=== PATIENT | female | born 1970 | race Caucasian/White ===

== ENCOUNTER 2024-05-19 11:47 | Emergency (ER) | payer OTHER ==
[~2024-05-19] VITALS: Ht 160 cm; Wt 106.0 kg
[~2024-05-19 11:47] MED LIST: ACAMPROSATE CA333 MG PO; ALEVE220 M1 PO; BACTRIM DS1 TAB PO; BENZTROPINE0.5 MG PO; CHLORPROMAZ200 MG PO; CHLORPROMAZINE 25 MG/ML PO; CIPRO500 MG OR; CIPROFLOXACN500 MG PO; CLINDAMYCIN11 EX; CLINDAMYCIN150 MG PO; CLONIDINE HCL0.1 MG OR; CLONIDINE0.1 MG PO; EFFEXOR XR75 MG PO; FLEXERIL OR; FLORASTOR250 M1 PO; HALDOL1 M1 PO; LASIX 10 MG10 MG/TA1 PO; LEVSIN/SL0.125 MG SL; LORAZEPAM0.5 MG PO; LORCET PLUS1 TAB OR; LORTAB 5/3255 MG PO; MEDDOSEPAK PO; MUPIROCIN2 %; OMEPRAZOLE20 M1 PO; OXCARBAZEPINE300 MG PO; PERCOCET 5/325M1 TAB PO; PRILOSEC20 MG/CAP PO; SEROQUEL XR150 MG PO; TEGRETOL200 MG PO; THORAZINE25 MG PO; TIZANIDINE4 MG PO; TRAMADOL HCL50 MG PO; TRILEPTAL300 MG PO; ULTRAM50 MG OR; VISTARIL 50MG C50 M1 PO; VISTARIL 50MG C50 MG PO; VISTARIL50 MG PO
[2024-05-19 12:35] VITALS: BP 132/55
[2024-05-19 12:46] VITALS: BP 117/59
[2024-05-19 13:01] VITALS: BP 107/59
[2024-05-19 13:21] LABS: BASO% 0.3 % (0-3); EOS% 0.7 % (0-8); HEMATOCRIT 32.5 % (37.0-47.0); HEMOGLOBIN 10.4 g/dl (12.0-16.0); IMMATURE GRANULOCYTES 0.1 % (0.0-5.0); LYMPH% 22.7 % (15-41); MEAN CORPUSCULAR HGB 29.1 pG CALC (26.0-32.0); MONO% 10.2 % (2-13); NEUT# 6.29 thou/uL (2.00-7.15); RED BLOOD COUNT 3.57 mill/uL (4.20-5.60); RED CELL DISTRI WIDTH 13.4 % (11.5-15.5)
[2024-05-19 13:35] LABS: ALBUMIN 4.2 g/dL (3.2-5.0); ALKALINE PHOSPHATASE 94 u/l (38-126); ANION GAP 9 (6-22 (CALC)); BILIRUBIN, TOTAL 0.2 mg/dL (0.02-1.3); BUN 14 mg/dL (7-17); BUN/CREATININE RATIO 15 (12-20 (CALC)); CARBON DIOXIDE 25 mmol/l (22-30); CHLORIDE 104 mmol/l (95-108); CREATININE 0.9 mg/dL (0.5-1.0); ESTIMATED GFR 76 ML/MIN (>=90 (CALC)); POTASSIUM 3.5 mmol/l (3.5-5.1); SGOT/AST 39 u/l (14-36); SODIUM 134 mmol/l (137-146); TOTAL PROTEIN 6.8 g/dL (6.3-8.2)
[2024-05-19 15:12] LABS: URINE BILIRUBIN - DIPSTICK Negative (NEGATIVE); URINE BLOOD DIPSTICK Moderate (NEGATIVE); URINE GLUCOSE - DIPSTICK Negative (NEGATIVE); URINE KETONE Trace mg/dL (NEGATIVE); URINE NITRITE - DIPSTICK Negative (Negative); URINE PROTEIN - DIPSTICK 100 mg/dL (NEG-TRACE); URINE SPECIFIC GRAVITY 1.025; URINE UROBILINOGEN - DIPSTICK 0.2 E.U./dL (0.2)
[2024-05-19 15:13] LABS: URINE COLOR Yellow; URINE LEUK ESTERASE Large (NEGATIVE)
[2024-05-19 15:19] LABS: URINE BACTERIA FEW hpf; URINE SQUAMOUS EPITHELIAL CELL FEW EPI/hpf (0-FEW); URINE WBC 50-100 WBC/hpf (0-5)
[2024-05-19] MEDS ORDERED: DIPHENOXYLATE W/ ATROPINE 2.5 MG TAB PO ONE (16:15)
[2024-05-19] MEDS ORDERED: CEPHALEXIN MONOHYDRATE 500 MG/CAP PO ONE (16:15)
[2024-05-19] MEDS ORDERED: LOMOTIL2.5 MG PO (16:17)
[2024-05-19] MEDS ORDERED: KEFLEX500 MG PO (16:17)
[2024-05-19 16:18] VITALS: BP 107/59
== END 2024-05-19 16:32 | disposition home or self-care (01) | DRG 690 ==
LOC: ED 11:47
PROVIDERS: Family Medicine; Nurse Practitioner
DX: N39.0 Urinary tract infection, site not specified (principal); B95.7 Other staphylococcus as the cause of diseases classified elsewhere; R19.7 Diarrhea, unspecified; K21.9 Gastro-esophageal reflux disease without esophagitis; Z20.822 Contact with and (suspected) exposure to COVID-19